=== PATIENT | female | born 1970 | race African-American/Black ===

== ENCOUNTER 2021-03-22 23:56 | Emergency (ER) | payer OTHER, SELFPAY | END 2021-03-23 04:08 | disposition home or self-care (01) | LOC: ERS 23:56 | DX: T38.3X1A Poisoning by insulin and oral hypoglycemic [antidiabetic] drugs, accidental (unintentional), initial encounter (principal); I10 Essential (primary) hypertension; E78.5 Hyperlipidemia, unspecified | CPT/HCPCS: 36416; 99284 ==

== ENCOUNTER 2021-07-09 08:19 | Outpatient (CLI) | payer OTHER | END 2021-07-09 08:20 | disposition home or self-care (01) | LOC: BICMRI 08:19 | PROVIDERS: ATTEND Orthopaedic Surgery | DX: M25.571 Pain in right ankle and joints of right foot (principal) ==

== ENCOUNTER 2021-08-15 10:48 | Outpatient (CLI) | payer OTHER | END 2021-08-15 10:49 | disposition home or self-care (01) | LOC: BICMAMMO 10:48 | PROVIDERS: ATTEND Family Medicine | DX: Z12.31 Encounter for screening mammogram for malignant neoplasm of breast (principal) | CPT/HCPCS: 77063; 77067 ==

== ENCOUNTER 2022-09-19 10:09 | Outpatient (CLI) | payer OTHER | END 2022-09-19 10:10 | disposition home or self-care (01) | LOC: BICMAMMO 10:09 | PROVIDERS: ATTEND Family Medicine | DX: Z12.31 Encounter for screening mammogram for malignant neoplasm of breast (principal) | CPT/HCPCS: 77063; 77067 ==